=== PATIENT | male | born 1935 | race Caucasian/White ===

== ENCOUNTER → 2016-09-29 | Outpatient (CLI) | payer MEDICARE, OTHER ==
[~2016-09-29] MED LIST: ALIS300T; ASCO250T13 PO; ATEN50TA PO; CLOP75TA28 PO; CYANOCOBALAMIN (B-12) 1000 MCG/1 ML VIAL IM ONE; CYANOCOBALAMIN (B-12) 1000 MCG/1 ML VIAL ONE; FLUT250M2 IN; GABA300C8 PO; GLYB5TAB8 PO; NISO17TA
[2016-09-29 09:50] VITALS: BP 180/70
[2016-09-29 10:35] VITALS: BP 156/64
[2016-09-29 12:29] LABS: Basophils # (auto) 0 uL; Basophils % (auto) 0.3 % (0.0-2.0); Eosinophils # (auto) 0.1 uL; Hemoglobin 15.6 g/dL (13.5-17.5); Lymphocytes # (auto) 0.4 uL; Lymphocytes % (auto) 6.2 % (10.0-50.0); Mean Corpuscular Hemoglobin 32.2 pg (28.0-32.0); Mean Corpuscular Hgb Conc. 31.9 g/dL (32.0-36.0); Mean Corpuscular Volume 100.7 fL (80.0-100.0); Monocytes # (auto) 0.4 uL; Monocytes % (auto) 5.7 % (0.0-12.0); Neutrophils # (auto) 6.2 uL; Neutrophils % (auto) 86.8 % (37.0-80.0); Platelet Count (auto) 202 10^3/uL (140-450); Red Cell Distribution Width 13.3 % (11.6-16.0); White Blood Cell 7.1 10^3/uL (4.4-10.8)
[2016-09-29 15:25] LABS: Calcium 8.5 mg/dL (8.5-10.1); Magnesium 2.8 mg/dL (1.6-2.6); Potassium 4.5 mmol/L (3.5-5.1)
== END | disposition home or self-care (01) ==
LOC: CHF HDHVI 09:59
PROVIDERS: ATTEND Internal Medicine Cardiovascular Disease
DX: I10 Essential (primary) hypertension (principal); E83.40 Disorders of magnesium metabolism, unspecified; D64.9 Anemia, unspecified
CPT/HCPCS: 36415; 80048; 82962; 83735; 85025; 96372; G0463

== ENCOUNTER → 2017-01-24 | Outpatient (CLI) | payer MEDICARE, OTHER ==
[~2017-01-24] MED LIST changes: -CYANOCOBALAMIN (B-12) 1000 MCG/1 ML VIAL IM ONE; -CYANOCOBALAMIN (B-12) 1000 MCG/1 ML VIAL ONE; +GABA-497 PO; -GABA300C8 PO; -GLYB5TAB8 PO; +HYDR-4663 PO; +LINA5TAB PO; +VALA500T33 PO
== END | disposition home or self-care (01) ==
LOC: Rad HDHVI 08:58
PROVIDERS: ATTEND Internal Medicine Cardiovascular Disease
DX: I73.9 Peripheral vascular disease, unspecified (principal)
CPT/HCPCS: 93926

== ENCOUNTER → 2017-05-22 | Outpatient (CLI) | payer MEDICARE, OTHER ==
[~2017-05-22] MED LIST changes: -ALIS300T; -HYDR-4663 PO; +HYDR-4683 PO; +IOHEXOL 350 MG/ML 100ML IJ ONE; +SODIUM BICARBONATE 8.4 % INJ 50ML VIAL IV ONE; +SODIUM CHLORIDE 0.9% 500 ML IV SCH; +[UNRECOGNIZED DRUG - CODE]
[2017-05-22 11:50] VITALS: BP 140/62
[2017-05-22 14:30] VITALS: BP 119/90
== END | disposition home or self-care (01) ==
LOC: Rad HDHVI 11:26
PROVIDERS: ATTEND Internal Medicine Cardiovascular Disease
DX: J98.8 Other specified respiratory disorders (principal); I10 Essential (primary) hypertension; C34.90 Malignant neoplasm of unspecified part of unspecified bronchus or lung; J44.9 Chronic obstructive pulmonary disease, unspecified; Z90.2 Acquired absence of lung [part of]; Z90.49 Acquired absence of other specified parts of digestive tract
CPT/HCPCS: 71260; 82565; 96365; 96366; 96375; G0463; Q9967; 96374

== ENCOUNTER 2017-11-30 08:44 | Inpatient (IN) | payer MEDICARE, OTHER ==
[~2017-11-30] VITALS: Ht 185.4 cm; Wt 89.4 kg
[~2017-11-30 08:44] MED LIST changes: +ASCO500T11 PO; +FLUT250M2 INH; -GABA-497 PO; +GABA300C10 PO; +GLYB5TAB8 PO; -IOHEXOL 350 MG/ML 100ML IJ ONE; +NISO17TA3 PO; +NOR10T PO; -SODIUM BICARBONATE 8.4 % INJ 50ML VIAL IV ONE; -SODIUM CHLORIDE 0.9% 500 ML IV SCH; +VALA500T PO; +[UNRECOGNIZED DRUG - CODE]; -[UNRECOGNIZED DRUG - CODE]; +[UNRECOGNIZED DRUG - CODE] PO
[2017-11-30] MEDS ORDERED: ALBUTEROL SULF 2.5 MG/0.5ML(0.5%) NEB SOLN HHN ONE (09:00)
[2017-11-30] MEDS ORDERED: IPRATROPIUM BROM 0.5 MG/2.5ML INH SOL HHN ONE (09:00)
[2017-11-30] MEDS ORDERED: LEVOFLOXACIN 500MG 100 ML IV ONE (09:00)
[2017-11-30] MEDS ORDERED: methylPREDNISolone SOD SUCC 125 MG/2 ML VL IV ONE (09:00)
[2017-11-30 09:19] LABS: Basophils # (auto) 0.1 uL; Basophils % (auto) 0.9 % (0.0-2.0); Eosinophils # (auto) 0.1 uL; Eosinophils % (auto) 1.1 % (0.0-7.0); Hematocrit 48.1 % (41.0-53.0); Hemoglobin 16.3 g/dL (13.5-17.5); Lymphocytes # (auto) 0.9 uL; Lymphocytes % (auto) 10.3 % (10.0-50.0); Mean Corpuscular Hemoglobin 33.7 pg (28.0-32.0); Mean Corpuscular Hgb Conc. 33.9 g/dL (32.0-36.0); Mean Corpuscular Volume 99.3 fL (80.0-100.0); Monocytes # (auto) 0.6 uL; Monocytes % (auto) 6.4 % (0.0-12.0); Neutrophils # (auto) 7.3 uL; Neutrophils % (auto) 81.3 % (37.0-80.0); Platelet Count (auto) 171 10^3/uL (140-450); Red Blood Cells 4.84 10^6/uL (4.5-5.90); Red Cell Distribution Width 14.5 % (11.8-14.3)
[2017-11-30 09:49] LABS: Alanine Aminotransferase 14 U/L (16-61); Albumin 3.5 g/dL (3.4-5.0); Alkaline Phosphatase 94 U/L (45-117); Anion Gap 10 (5-15); Aspartate Aminotransferase 18 U/L (15-37); BUN/Creatinine Ratio 11.5; Bilirubin, Total 0.8 mg/dL (0.2-1.0); Blood Urea Nitrogen 30 mg/dL (7-18); Calcium 8.3 mg/dL (8.5-10.1); Carbon Dioxide 20 mmol/L (21-32); Chloride 110 mmol/L (98-107); GFR African American 30 mL/min; GFR Non-African American 25 mL/min; Glucose 168 mg/dL (74-106); Magnesium 2.6 mg/dL (1.6-2.6); Potassium 5.2 mmol/L (3.5-5.1); Sodium 140 mmol/L (136-145)
[2017-11-30 10:13] LABS: Lactic Acid w/Reflex 2.1 mmol/L (0.4-2.0)
[2017-11-30] MEDS ORDERED: AZITHROMYCIN 500MG/ 250ML 250 ML IV ONE (12:30)
[2017-11-30] MEDS ORDERED: cefTRIAXone 1GM/10ml IVPUSH 10 ML IV ONE (12:30)
[2017-11-30] MEDS ORDERED: NITROGLYCERIN 0.4 MG SL TAB SL PRN (12:45)
[2017-11-30] MEDS ORDERED: HYDROcodone-ACET 5/325MG TAB PO PRN (12:45)
[2017-11-30] MEDS ORDERED: ACETAMINOPHEN 325 MG TAB PO PRN (12:45)
[2017-11-30] MEDS ORDERED: ONDANSETRON HCL 4 MG/2 ML VIAL IV PRN (12:45)
[2017-11-30] MEDS ORDERED: DEXTROSE (50%) 50ML SYRG IV PRN (12:45)
[2017-11-30] MEDS ORDERED: TEMAZEPAM 15 MG CAP PO PRN (12:45)
[2017-11-30] MEDS ORDERED: DOCUSATE SOD 100 MG CAP PO PRN (12:45)
[2017-11-30] MEDS ORDERED: SODIUM POLYSTYRENE SULF 15GM/60ML SUSP PO ONE (12:45)
[2017-11-30] MEDS: SODIUM CHLOR 0.9% PF (SALINE LOCK) 10ML VIAL/SYR IV SCH ×2 (13:04→22:19)
[2017-11-30] MEDS: MULTIPLE VITAMIN TAB PO SCH (13:34)
[2017-11-30] MEDS: ACCU-CHEK COMFORT CURVE STRIP VI SCH ×2 (17:09→22:21)
[2017-11-30] MEDS: InsuLIN REG 1unit/0.01ml Soln (100units/ml) SC SCH ×2 (17:09→22:21)
[2017-11-30] MEDS: BUDESONIDE (INHALATION) 0.5 MG/2 ML NEB NEB SCH (18:21)
[2017-11-30] MEDS: IPRATROPIUM BROM 0.5 MG/2.5ML INH SOL NEB SCH (18:21)
[2017-11-30] MEDS: ALBUTEROL SULF 2.5 MG/0.5ML(0.5%) NEB SOLN NEB SCH (18:21)
[2017-11-30 19:05] LABS: Urine WBC None Seen /hpf (0 - 3)
[2017-11-30 19:55] LABS: Urine Bacteria NONE SEEN /hpf (None Seen); Urine Blood Negative /uL (Negative); Urine Specific Gravity 1.019 (1.001-1.035)
[2017-11-30 21:05] VITALS: BP 161/71
[2017-11-30 22:00] VITALS: BP 161/71
[2017-11-30] MEDS: VALACYCLOVIR 500 MG TABLET PO SCH (22:00)
[2017-11-30] MEDS ORDERED: ADVAIR 250/50 IN SCH (22:00)
[2017-11-30] MEDS: FAMOTIDINE 20 MG TAB PO SCH (22:21)
[2017-11-30] MEDS: GABAPENTIN 300 MG CAP PO SCH (22:21)
[2017-12-01] MEDS: IPRATROPIUM BROM 0.5 MG/2.5ML INH SOL NEB SCH ×4 (00:08→19:43)
[2017-12-01] MEDS: ALBUTEROL SULF 2.5 MG/0.5ML(0.5%) NEB SOLN NEB SCH ×4 (00:08→19:43)
[2017-12-01 05:00] VITALS: BP 123/79
[2017-12-01] MEDS: SODIUM CHLOR 0.9% PF (SALINE LOCK) 10ML VIAL/SYR IV SCH ×3 (05:36→22:47)
[2017-12-01] MEDS: InsuLIN REG 1unit/0.01ml Soln (100units/ml) SC SCH ×4 (06:26→22:00)
[2017-12-01] MEDS: ACCU-CHEK COMFORT CURVE STRIP VI SCH ×4 (06:26→22:00)
[2017-12-01 06:32] LABS: Basophils # (auto) 0 uL; Basophils % (auto) 0.1 % (0.0-2.0); Eosinophils # (auto) 0 uL; Hematocrit 44.7 % (41.0-53.0); Lymphocytes # (auto) 0.4 uL; Lymphocytes % (auto) 3.8 % (10.0-50.0); Mean Corpuscular Hemoglobin 33.4 pg (28.0-32.0); Mean Corpuscular Hgb Conc. 33.5 g/dL (32.0-36.0); Mean Corpuscular Volume 99.5 fL (80.0-100.0); Monocytes # (auto) 0.5 uL; Monocytes % (auto) 4.4 % (0.0-12.0); Neutrophils % (auto) 91.7 % (37.0-80.0); Platelet Count (auto) 160 10^3/uL (140-450); Red Blood Cells 4.49 10^6/uL (4.5-5.90); Red Cell Distribution Width 14.5 % (11.8-14.3); White Blood Cell 10.9 10^3/uL (4.4-10.8)
[2017-12-01 06:44] LABS: BUN/Creatinine Ratio 14.7; Calcium 8.2 mg/dL (8.5-10.1); Potassium 4.3 mmol/L (3.5-5.1)
[2017-12-01 06:47] LABS: Bilirubin, Total 0.5 mg/dL (0.2-1.0); Total Protein 5.9 g/dL (6.4-8.2)
[2017-12-01] MEDS: BUDESONIDE (INHALATION) 0.5 MG/2 ML NEB NEB SCH ×2 (07:07→19:44)
[2017-12-01 07:53] VITALS: BP 145/58
[2017-12-01] MEDS: VALACYCLOVIR 500 MG TABLET PO SCH ×2 (10:00→22:00)
[2017-12-01] MEDS: SULAR PO SCH (10:00)
[2017-12-01] MEDS: TRADJENTA 5MG PO SCH (10:00)
[2017-12-01] MEDS ORDERED: AZITHROMYCIN 500MG/ 250ML 200 ML IV SCH (10:00)
[2017-12-01] MEDS: cefTRIAXone 1GM/10ml IVPUSH 10 ML IV SCH (10:39)
[2017-12-01] MEDS: GABAPENTIN 300 MG CAP PO SCH ×2 (10:46→22:48)
[2017-12-01] MEDS: MULTIPLE VITAMIN TAB PO SCH (10:46)
[2017-12-01] MEDS: ISOSORBIDE MONONITRATE 20 MG TAB PO SCH (10:46)
[2017-12-01] MEDS: ASCORBIC ACID 500 MG TAB PO SCH (10:47)
[2017-12-01] MEDS: METOPROLOL SUCCINATE XL 50 MG TAB PO SCH (10:47)
[2017-12-01 11:37] VITALS: BP 158/80
[2017-12-01 17:00] VITALS: BP 141/87
[2017-12-01 22:28] VITALS: BP 140/69
[2017-12-01] MEDS: FAMOTIDINE 20 MG TAB PO SCH (22:48)
[2017-12-01] MEDS: HYDROcodone-ACET 10/325MG TAB PO PRN (22:49)
[2017-12-02] MEDS: IPRATROPIUM BROM 0.5 MG/2.5ML INH SOL NEB SCH ×4 (01:01→19:23)
[2017-12-02] MEDS: ALBUTEROL SULF 2.5 MG/0.5ML(0.5%) NEB SOLN NEB SCH ×4 (01:01→19:23)
[2017-12-02 05:12] VITALS: BP 153/84
[2017-12-02] MEDS: HYDROcodone-ACET 10/325MG TAB PO PRN ×2 (05:25→22:07)
[2017-12-02] MEDS: BUDESONIDE (INHALATION) 0.5 MG/2 ML NEB NEB SCH ×2 (06:41→19:23)
[2017-12-02] MEDS: InsuLIN REG 1unit/0.01ml Soln (100units/ml) SC SCH ×4 (07:00→22:06)
[2017-12-02] MEDS: SODIUM CHLOR 0.9% PF (SALINE LOCK) 10ML VIAL/SYR IV SCH ×3 (07:23→22:06)
[2017-12-02] MEDS: ACCU-CHEK COMFORT CURVE STRIP VI SCH ×4 (07:23→22:07)
[2017-12-02 07:34] VITALS: BP 149/75
[2017-12-02] MEDS: SULAR PO SCH (10:00)
[2017-12-02] MEDS: VALACYCLOVIR 500 MG TABLET PO SCH ×3 (10:00→22:06)
[2017-12-02] MEDS: TRADJENTA 5MG PO SCH (10:00)
[2017-12-02] MEDS: cefTRIAXone 1GM/10ml IVPUSH 10 ML IV SCH (10:23)
[2017-12-02] MEDS: AZITHROMYCIN 500MG/ 250ML 250 ML IV SCH (10:25)
[2017-12-02] MEDS: FUROSEMIDE 20 MG/2 ML VIAL IV SCH (10:25)
[2017-12-02] MEDS: ISOSORBIDE MONONITRATE 20 MG TAB PO SCH (10:26)
[2017-12-02] MEDS: METOPROLOL SUCCINATE XL 50 MG TAB PO SCH (10:27)
[2017-12-02] MEDS: ASCORBIC ACID 500 MG TAB PO SCH (10:27)
[2017-12-02] MEDS: GABAPENTIN 300 MG CAP PO SCH ×2 (10:27→22:06)
[2017-12-02] MEDS: MULTIPLE VITAMIN TAB PO SCH (10:27)
[2017-12-02 13:00] VITALS: BP 146/68
[2017-12-02 17:02] VITALS: BP 139/75
[2017-12-02] MEDS: FAMOTIDINE 20 MG TAB PO SCH (22:06)
[2017-12-02 22:25] VITALS: BP 139/66
[2017-12-03] MEDS: IPRATROPIUM BROM 0.5 MG/2.5ML INH SOL NEB SCH ×4 (00:27→19:35)
[2017-12-03] MEDS: ALBUTEROL SULF 2.5 MG/0.5ML(0.5%) NEB SOLN NEB SCH ×3 (00:27→12:01)
[2017-12-03 05:23] VITALS: BP 138/65
[2017-12-03] MEDS: SODIUM CHLOR 0.9% PF (SALINE LOCK) 10ML VIAL/SYR IV SCH ×3 (06:12→22:07)
[2017-12-03] MEDS: InsuLIN REG 1unit/0.01ml Soln (100units/ml) SC SCH ×4 (06:40→22:08)
[2017-12-03] MEDS: ACCU-CHEK COMFORT CURVE STRIP VI SCH ×4 (06:41→22:08)
[2017-12-03] MEDS: BUDESONIDE (INHALATION) 0.5 MG/2 ML NEB NEB SCH ×2 (07:24→19:35)
[2017-12-03 09:00] VITALS: BP 143/89
[2017-12-03] MEDS: cefTRIAXone 1GM/10ml IVPUSH 10 ML IV SCH (09:56)
[2017-12-03] MEDS: AZITHROMYCIN 500MG/ 250ML 250 ML IV SCH (09:56)
[2017-12-03] MEDS: GABAPENTIN 300 MG CAP PO SCH ×2 (09:57→22:07)
[2017-12-03] MEDS: FUROSEMIDE 20 MG/2 ML VIAL IV SCH (09:57)
[2017-12-03] MEDS: MULTIPLE VITAMIN TAB PO SCH (09:57)
[2017-12-03] MEDS: ASCORBIC ACID 500 MG TAB PO SCH (09:57)
[2017-12-03] MEDS: METOPROLOL SUCCINATE XL 50 MG TAB PO SCH (09:58)
[2017-12-03] MEDS: SULAR PO SCH (09:59)
[2017-12-03] MEDS: TRADJENTA 5MG PO SCH (09:59)
[2017-12-03] MEDS: VALACYCLOVIR 500 MG TABLET PO SCH ×2 (09:59→22:00)
[2017-12-03] MEDS: ISOSORBIDE MONONITRATE 20 MG TAB PO SCH (10:16)
[2017-12-03 12:38] VITALS: BP 115/68
[2017-12-03 14:37] VITALS: BP 115/68
[2017-12-03 14:54] LABS: BUN/Creatinine Ratio 14.5; Calcium 8.2 mg/dL (8.5-10.1); Potassium 4.1 mmol/L (3.5-5.1)
[2017-12-03 17:00] VITALS: BP 138/71
[2017-12-03] MEDS ORDERED: DIGOXIN (250MCG/ML) 2 ML AMPULE IV STA ×2 (18:32→19:53)
[2017-12-03] MEDS: FAMOTIDINE 20 MG TAB PO SCH (22:08)
[2017-12-03 22:18] VITALS: BP 154/91
[2017-12-04] MEDS: IPRATROPIUM BROM 0.5 MG/2.5ML INH SOL NEB SCH ×4 (00:56→19:21)
[2017-12-04] MEDS: BUDESONIDE (INHALATION) 0.5 MG/2 ML NEB NEB SCH ×2 (06:27→19:21)
[2017-12-04] MEDS: InsuLIN REG 1unit/0.01ml Soln (100units/ml) SC SCH ×4 (06:30→22:00)
[2017-12-04] MEDS: SODIUM CHLOR 0.9% PF (SALINE LOCK) 10ML VIAL/SYR IV SCH ×3 (06:30→21:37)
[2017-12-04] MEDS: ACCU-CHEK COMFORT CURVE STRIP VI SCH ×4 (06:30→22:15)
[2017-12-04 07:28] LABS: BUN/Creatinine Ratio 16.7; Bilirubin, Total 0.8 mg/dL (0.2-1.0); Calcium 8.7 mg/dL (8.5-10.1); Total Protein 6.4 g/dL (6.4-8.2)
[2017-12-04 07:30] LABS: Basophils # (auto) 0 uL; Basophils % (auto) 0.6 % (0.0-2.0); Eosinophils # (auto) 0.1 uL; Hematocrit 48.1 % (41.0-53.0); Hemoglobin 16.3 g/dL (13.5-17.5); Lymphocytes # (auto) 0.7 uL; Lymphocytes % (auto) 10.1 % (10.0-50.0); Mean Corpuscular Hemoglobin 33.3 pg (28.0-32.0); Monocytes # (auto) 0.6 uL; Neutrophils # (auto) 5.4 uL; Neutrophils % (auto) 78.3 % (37.0-80.0); Nucleated Red Blood Cells % 0.1 %; Platelet Count (auto) 153 10^3/uL (140-450); Red Blood Cells 4.91 10^6/uL (4.5-5.90); Red Cell Distribution Width 14.6 % (11.8-14.3); White Blood Cell 6.9 10^3/uL (4.4-10.8)
[2017-12-04 08:00] VITALS: BP 164/68
[2017-12-04 09:10] VITALS: BP 164/68
[2017-12-04] MEDS: FUROSEMIDE 20 MG/2 ML VIAL IV SCH (09:17)
[2017-12-04] MEDS: cefTRIAXone 1GM/10ml IVPUSH 10 ML IV SCH (09:17)
[2017-12-04] MEDS: ISOSORBIDE MONONITRATE 20 MG TAB PO SCH (09:18)
[2017-12-04] MEDS: GABAPENTIN 300 MG CAP PO SCH ×2 (09:20→22:16)
[2017-12-04] MEDS: MULTIPLE VITAMIN TAB PO SCH (09:21)
[2017-12-04] MEDS: METOPROLOL SUCCINATE XL 50 MG TAB PO SCH (09:22)
[2017-12-04] MEDS: ASCORBIC ACID 500 MG TAB PO SCH (09:22)
[2017-12-04] MEDS: SULAR PO SCH (09:29)
[2017-12-04] MEDS: AZITHROMYCIN 500MG/ 250ML 250 ML IV SCH (09:29)
[2017-12-04] MEDS: VALACYCLOVIR 500 MG TABLET PO SCH ×2 (09:29→21:38)
[2017-12-04] MEDS: TRADJENTA 5MG PO SCH (09:29)
[2017-12-04 13:08] VITALS: BP 127/73
[2017-12-04 16:50] VITALS: BP 128/59
[2017-12-04] MEDS: FAMOTIDINE 20 MG TAB PO SCH (21:36)
[2017-12-04 22:00] VITALS: BP 148/72
[2017-12-05] MEDS: IPRATROPIUM BROM 0.5 MG/2.5ML INH SOL NEB SCH ×4 (00:54→19:46)
[2017-12-05 04:48] VITALS: BP 150/75
[2017-12-05] MEDS: BUDESONIDE (INHALATION) 0.5 MG/2 ML NEB NEB SCH ×2 (06:09→19:46)
[2017-12-05 06:21] LABS: BUN/Creatinine Ratio 16.2; Calcium 8.8 mg/dL (8.5-10.1); Potassium 4.2 mmol/L (3.5-5.1)
[2017-12-05] MEDS: SODIUM CHLOR 0.9% PF (SALINE LOCK) 10ML VIAL/SYR IV SCH ×3 (06:22→22:53)
[2017-12-05] MEDS: ACCU-CHEK COMFORT CURVE STRIP VI SCH ×4 (06:28→22:52)
[2017-12-05] MEDS: InsuLIN REG 1unit/0.01ml Soln (100units/ml) SC SCH ×4 (06:29→22:51)
[2017-12-05 09:00] VITALS: BP 141/61
[2017-12-05] MEDS: cefTRIAXone 1GM/10ml IVPUSH 10 ML IV SCH (09:09)
[2017-12-05] MEDS: AZITHROMYCIN 500MG/ 250ML 250 ML IV SCH (09:10)
[2017-12-05] MEDS: ASCORBIC ACID 500 MG TAB PO SCH (09:10)
[2017-12-05] MEDS: MULTIPLE VITAMIN TAB PO SCH (09:10)
[2017-12-05] MEDS: FUROSEMIDE 20 MG/2 ML VIAL IV SCH (09:10)
[2017-12-05] MEDS: ISOSORBIDE MONONITRATE 20 MG TAB PO SCH (09:10)
[2017-12-05] MEDS: GABAPENTIN 300 MG CAP PO SCH ×2 (09:11→22:50)
[2017-12-05] MEDS: METOPROLOL SUCCINATE XL 50 MG TAB PO SCH (09:11)
[2017-12-05] MEDS: VALACYCLOVIR 500 MG TABLET PO SCH ×2 (09:23→22:53)
[2017-12-05] MEDS: TRADJENTA 5MG PO SCH (09:23)
[2017-12-05] MEDS: SULAR PO SCH (09:24)
[2017-12-05 12:13] VITALS: BP 113/66
[2017-12-05 17:07] VITALS: BP 137/81
[2017-12-05 22:00] VITALS: BP 105/60
[2017-12-05] MEDS: FAMOTIDINE 20 MG TAB PO SCH (22:50)
[2017-12-06] VITALS (7 sets, daily range): BP systolic 99–161; BP diastolic 42–87
[2017-12-06] MEDS: IPRATROPIUM BROM 0.5 MG/2.5ML INH SOL NEB SCH ×4 (00:51→19:20)
[2017-12-06] MEDS: ACCU-CHEK COMFORT CURVE STRIP VI SCH ×4 (06:08→22:06)
[2017-12-06] MEDS: SODIUM CHLOR 0.9% PF (SALINE LOCK) 10ML VIAL/SYR IV SCH ×3 (06:09→21:58)
[2017-12-06] MEDS: InsuLIN REG 1unit/0.01ml Soln (100units/ml) SC SCH ×4 (06:39→22:14)
[2017-12-06 06:58] LABS: BUN/Creatinine Ratio 17.8; Calcium 8.6 mg/dL (8.5-10.1); Potassium 3.8 mmol/L (3.5-5.1)
[2017-12-06] MEDS: BUDESONIDE (INHALATION) 0.5 MG/2 ML NEB NEB SCH ×2 (07:04→19:20)
[2017-12-06] MEDS: HYDROcodone-ACET 10/325MG TAB PO PRN (08:40)
[2017-12-06] MEDS: FUROSEMIDE 20 MG/2 ML VIAL IV SCH (09:24)
[2017-12-06] MEDS: cefTRIAXone 1GM/10ml IVPUSH 10 ML IV SCH (09:24)
[2017-12-06] MEDS: GABAPENTIN 300 MG CAP PO SCH ×2 (09:25→21:58)
[2017-12-06] MEDS: ISOSORBIDE MONONITRATE 20 MG TAB PO SCH (09:25)
[2017-12-06] MEDS: ASCORBIC ACID 500 MG TAB PO SCH (09:26)
[2017-12-06] MEDS: MULTIPLE VITAMIN TAB PO SCH (09:26)
[2017-12-06] MEDS: METOPROLOL SUCCINATE XL 50 MG TAB PO SCH (09:26)
[2017-12-06] MEDS: VALACYCLOVIR 500 MG TABLET PO SCH ×2 (09:28→22:00)
[2017-12-06] MEDS: TRADJENTA 5MG PO SCH (09:29)
[2017-12-06] MEDS: SULAR PO SCH (09:29)
[2017-12-06] MEDS: AZITHROMYCIN 250 MG TAB PO SCH (09:46)
[2017-12-06] MEDS: FAMOTIDINE 20 MG TAB PO SCH (21:58)
[2017-12-07] MEDS: IPRATROPIUM BROM 0.5 MG/2.5ML INH SOL NEB SCH ×3 (00:20→12:08)
[2017-12-07 05:00] VITALS: BP 135/58
[2017-12-07] MEDS: ACCU-CHEK COMFORT CURVE STRIP VI SCH ×2 (06:14→11:57)
[2017-12-07] MEDS: SODIUM CHLOR 0.9% PF (SALINE LOCK) 10ML VIAL/SYR IV SCH (06:14)
[2017-12-07] MEDS: InsuLIN REG 1unit/0.01ml Soln (100units/ml) SC SCH ×2 (06:15→11:57)
[2017-12-07] MEDS: BUDESONIDE (INHALATION) 0.5 MG/2 ML NEB NEB SCH (06:33)
[2017-12-07 09:00] VITALS: BP 132/61
[2017-12-07] MEDS: cefTRIAXone 1GM/10ml IVPUSH 10 ML IV SCH (10:35)
[2017-12-07] MEDS: FUROSEMIDE 20 MG/2 ML VIAL IV SCH (10:35)
[2017-12-07] MEDS: ISOSORBIDE MONONITRATE 20 MG TAB PO SCH (10:36)
[2017-12-07] MEDS: TRADJENTA 5MG PO SCH (10:36)
[2017-12-07] MEDS: MULTIPLE VITAMIN TAB PO SCH (10:36)
[2017-12-07] MEDS: VALACYCLOVIR 500 MG TABLET PO SCH (10:36)
[2017-12-07] MEDS: SULAR PO SCH (10:36)
[2017-12-07] MEDS: METOPROLOL SUCCINATE XL 50 MG TAB PO SCH (10:37)
[2017-12-07] MEDS: AZITHROMYCIN 250 MG TAB PO SCH (10:37)
[2017-12-07] MEDS: ASCORBIC ACID 500 MG TAB PO SCH (10:37)
[2017-12-07] MEDS: GABAPENTIN 300 MG CAP PO SCH (11:57)
[2017-12-07 13:00] VITALS: BP 101/67
== END 2017-12-07 15:38 | DRG 871 ==
LOC: ER 08:44 → TELE 08:45 → MERGE 08:45 → TELE-WESTW 21:05
PROVIDERS: ADMIT Internal Medicine; ATTEND Internal Medicine Cardiovascular Disease
PROC: 5A09357 Assistance with Respiratory Ventilation, Less than 24 Consecutive Hours, Continuous Positive Airway Pressure (ICD-10-PCS; principal; 2017-11-30)
DX: A41.9 Sepsis, unspecified organism (principal); J18.9 Pneumonia, unspecified organism; J96.20 Acute and chronic respiratory failure, unspecified whether with hypoxia or hypercapnia; J44.0 Chronic obstructive pulmonary disease with (acute) lower respiratory infection; I13.0 Hypertensive heart and chronic kidney disease with heart failure and stage 1 through stage 4 chronic kidney disease, or unspecified chronic kidney disease; N18.4 Chronic kidney disease, stage 4 (severe); N17.9 Acute kidney failure, unspecified; E11.21 Type 2 diabetes mellitus with diabetic nephropathy; J45.901 Unspecified asthma with (acute) exacerbation; E83.52 Hypercalcemia; E11.42 Type 2 diabetes mellitus with diabetic polyneuropathy; I50.32 Chronic diastolic (congestive) heart failure; E87.5 Hyperkalemia; J44.1 Chronic obstructive pulmonary disease with (acute) exacerbation; E11.40 Type 2 diabetes mellitus with diabetic neuropathy, unspecified; E78.5 Hyperlipidemia, unspecified; E11.22 Type 2 diabetes mellitus with diabetic chronic kidney disease; I48.91 Unspecified atrial fibrillation; I70.0 Atherosclerosis of aorta; R04.0 Epistaxis; Z80.52 Family history of malignant neoplasm of bladder; Z88.6 Allergy status to analgesic agent; Z91.012 Allergy to eggs; Z87.891 Personal history of nicotine dependence; Z90.2 Acquired absence of lung [part of]; Z99.81 Dependence on supplemental oxygen
CPT/HCPCS: 36415; 36600; 70450; 71045; 71250; 78582; 80048; 80053; 81001; 82805; 82962; 83036; 83605; 83735; 83880; 84443; 84484; 85025; 87040; 87086; 93005; 93306; 93970; 94640; 94644; 94761; 96365; 96367; 96375; 97163; J1815; J1956

== ENCOUNTER → 2017-12-11 | Outpatient (CLI) | payer MEDICARE, OTHER ==
[~2017-12-11] VITALS: Ht 1 cm; Wt 0.5 kg
[~2017-12-11] MED LIST changes: +CYANOCOBALAMIN (B-12) 1000 MCG/1 ML VIAL IM ONE; +CYANOCOBALAMIN (B-12) 1000 MCG/1 ML VIAL ONE
[2017-12-11 14:20] VITALS: BP 162/66
[2017-12-11 15:00] VITALS: BP 134/60
[2017-12-11 16:10] LABS: Potassium 4.3 mmol/L (3.5-5.1)
[2017-12-11 16:18] LABS: Basophils # (auto) 0.1 uL; Basophils % (auto) 0.9 % (0.0-2.0); Eosinophils # (auto) 0.2 uL; Eosinophils % (auto) 2.3 % (0.0-7.0); Hematocrit 45.1 % (41.0-53.0); Hemoglobin 15.4 g/dL (13.5-17.5); Lymphocytes % (auto) 14.4 % (10.0-50.0); Mean Corpuscular Hemoglobin 33.5 pg (28.0-32.0); Mean Corpuscular Hgb Conc. 34.2 g/dL (32.0-36.0); Mean Corpuscular Volume 97.8 fL (80.0-100.0); Monocytes # (auto) 0.7 uL; Neutrophils # (auto) 5.3 uL; Neutrophils % (auto) 73.4 % (37.0-80.0); Nucleated Red Blood Cells % 0.1 %; Platelet Count (auto) 184 10^3/uL (140-450); Red Blood Cells 4.61 10^6/uL (4.5-5.90); Red Cell Distribution Width 13.8 % (11.8-14.3); White Blood Cell 7.3 10^3/uL (4.4-10.8)
== END | disposition home or self-care (01) ==
LOC: CHF HDHVI 14:21
PROVIDERS: ATTEND Internal Medicine Cardiovascular Disease
DX: J90 Pleural effusion, not elsewhere classified (principal); I70.0 Atherosclerosis of aorta; I13.0 Hypertensive heart and chronic kidney disease with heart failure and stage 1 through stage 4 chronic kidney disease, or unspecified chronic kidney disease; E11.22 Type 2 diabetes mellitus with diabetic chronic kidney disease; N18.4 Chronic kidney disease, stage 4 (severe); I50.9 Heart failure, unspecified; R53.81 Other malaise; D64.9 Anemia, unspecified; E78.5 Hyperlipidemia, unspecified
CPT/HCPCS: 36415; 71046; 82565; 82962; 83880; 84132; 84520; 85025; 96372; G0463; J3420

== ENCOUNTER 2017-12-17 09:55 | Inpatient (IN) | payer MEDICARE, OTHER ==
[~2017-12-17] VITALS: Ht 185.4 cm; Wt 87.5 kg
[~2017-12-17 09:55] MED LIST changes: -CYANOCOBALAMIN (B-12) 1000 MCG/1 ML VIAL IM ONE; -CYANOCOBALAMIN (B-12) 1000 MCG/1 ML VIAL ONE
[2017-12-17 10:28] LABS: Basophils # (auto) 0.1 uL; Basophils % (auto) 0.8 % (0.0-2.0); Eosinophils # (auto) 0.1 uL; Eosinophils % (auto) 0.6 % (0.0-7.0); Hematocrit 46.5 % (41.0-53.0); Hemoglobin 15.4 g/dL (13.5-17.5); Lymphocytes # (auto) 0.8 uL; Lymphocytes % (auto) 8.1 % (10.0-50.0); Mean Corpuscular Hemoglobin 32.4 pg (28.0-32.0); Mean Corpuscular Hgb Conc. 33.1 g/dL (32.0-36.0); Mean Corpuscular Volume 97.9 fL (80.0-100.0); Monocytes # (auto) 0.6 uL; Monocytes % (auto) 5.7 % (0.0-12.0); Neutrophils # (auto) 8.6 uL; Neutrophils % (auto) 84.8 % (37.0-80.0); Platelet Count (auto) 183 10^3/uL (140-450); Red Blood Cells 4.74 10^6/uL (4.5-5.90); Red Cell Distribution Width 14.4 % (11.8-14.3); White Blood Cell 10.1 10^3/uL (4.4-10.8)
[2017-12-17 10:43] LABS: Albumin 3.3 g/dL (3.4-5.0); BUN/Creatinine Ratio 11.6; Bilirubin, Total 0.6 mg/dL (0.2-1.0); Calcium 8.3 mg/dL (8.5-10.1); Magnesium 2.6 mg/dL (1.6-2.6); Total Protein 6.3 g/dL (6.4-8.2)
[2017-12-17] MEDS ORDERED: SODIUM CHLORIDE 0.9% 1,000 ML IV ONE (13:33)
[2017-12-17] MEDS ORDERED: LACTULOSE 20Gm/30ML SOLN PO PRN (14:00)
[2017-12-17] MEDS ORDERED: TEMAZEPAM 15 MG CAP PO PRN (14:00)
[2017-12-17] MEDS ORDERED: NITROGLYCERIN 0.4 MG SL TAB SL PRN (14:00)
[2017-12-17] MEDS ORDERED: DEXTROSE (50%) 50ML SYRG IV PRN (14:00)
[2017-12-17] MEDS ORDERED: HYDROcodone-ACET 5/325MG TAB PO PRN (14:00)
[2017-12-17] MEDS ORDERED: LORazepam 0.5 MG TAB PO PRN (14:00)
[2017-12-17] MEDS ORDERED: ACETAMINOPHEN 500 MG TAB PO PRN (14:00)
[2017-12-17] MEDS ORDERED: PROMETHAZINE HCL 25 MG/ML 1ML IV PRN (14:00)
[2017-12-17] MEDS ORDERED: ALBUTEROL SULF 2.5 MG/0.5ML(0.5%) NEB SOLN NEB PRN (14:00)
[2017-12-17] MEDS ORDERED: methylPREDNISolone SOD SUCC 40 MG/ML VL IV SCH (14:00)
[2017-12-17 14:13] LABS: INR 0.94 (0.9-1.15); Partial Thromboplastin Time 24.7 sec (22.64-33.71); Prothrombin Time 10.2 sec (9.37-12.3)
[2017-12-17 14:34] VITALS: BP 117/51
[2017-12-17] MEDS: DOXYCYCLINE 100MG/250ML 250 ML IV SCH (14:41)
[2017-12-17] MEDS ORDERED: ENOXAPARIN SOD 60 MG/0.6 ML SYRINGE SC ONE (16:15)
[2017-12-17] MEDS: ACCU-CHEK COMFORT CURVE STRIP VI SCH ×2 (17:45→22:35)
[2017-12-17] MEDS: InsuLIN REG 1unit/0.01ml Soln (100units/ml) SC SCH ×2 (17:48→22:35)
[2017-12-17] MEDS: ALBUTEROL SULF 2.5 MG/0.5ML(0.5%) NEB SOLN NEB SCH ×2 (18:16→23:57)
[2017-12-17] MEDS: IPRATROPIUM BROM 0.5 MG/2.5ML INH SOL NEB SCH ×2 (18:16→23:57)
[2017-12-17] MEDS: BUDESONIDE (INHALATION) 0.5 MG/2 ML NEB NEB SCH (18:16)
[2017-12-17 18:30] VITALS: BP 163/73
[2017-12-17] MEDS: glyBURIDE 5 MG TAB PO SCH (19:08)
[2017-12-17 19:50] VITALS: BP 154/98
[2017-12-17] MEDS: VALACYCLOVIR 500 MG TABLET PO SCH (22:00)
[2017-12-17] MEDS: GABAPENTIN 300 MG CAP PO SCH (22:35)
[2017-12-17] MEDS: CARVEDILOL 3.125 MG TAB PO SCH (22:54)
[2017-12-18] VITALS: BP 133/55
[2017-12-18] MEDS: DOXYCYCLINE 100MG/250ML 250 ML IV SCH ×2 (01:37→14:24)
[2017-12-18 04:00] VITALS: BP 154/77
[2017-12-18 05:25] LABS: Basophils # (auto) 0 uL; Basophils % (auto) 0.3 % (0.0-2.0); Eosinophils # (auto) 0 uL; Hematocrit 44.2 % (41.0-53.0); Hemoglobin 14.8 g/dL (13.5-17.5); Lymphocytes # (auto) 0.6 uL; Lymphocytes % (auto) 5.5 % (10.0-50.0); Mean Corpuscular Hemoglobin 32.9 pg (28.0-32.0); Mean Corpuscular Hgb Conc. 33.4 g/dL (32.0-36.0); Mean Corpuscular Volume 98.6 fL (80.0-100.0); Monocytes # (auto) 0.5 uL; Monocytes % (auto) 4.4 % (0.0-12.0); Neutrophils # (auto) 9.4 uL; Neutrophils % (auto) 89.8 % (37.0-80.0); Nucleated Red Blood Cells % 0.1 %; Platelet Count (auto) 168 10^3/uL (140-450); Red Blood Cells 4.48 10^6/uL (4.5-5.90); Red Cell Distribution Width 14.2 % (11.8-14.3); White Blood Cell 10.5 10^3/uL (4.4-10.8)
[2017-12-18 05:42] LABS: Albumin 2.9 g/dL (3.4-5.0); BUN/Creatinine Ratio 14.6; Potassium 4.3 mmol/L (3.5-5.1)
[2017-12-18 05:45] LABS: Bilirubin, Total 0.5 mg/dL (0.2-1.0); Total Protein 5.9 g/dL (6.4-8.2)
[2017-12-18] MEDS: IPRATROPIUM BROM 0.5 MG/2.5ML INH SOL NEB SCH ×4 (06:25→23:51)
[2017-12-18] MEDS: ALBUTEROL SULF 2.5 MG/0.5ML(0.5%) NEB SOLN NEB SCH ×4 (06:25→23:51)
[2017-12-18] MEDS: BUDESONIDE (INHALATION) 0.5 MG/2 ML NEB NEB SCH ×2 (06:25→19:02)
[2017-12-18] MEDS: ACCU-CHEK COMFORT CURVE STRIP VI SCH ×4 (06:42→21:22)
[2017-12-18] MEDS: InsuLIN REG 1unit/0.01ml Soln (100units/ml) SC SCH ×4 (06:42→21:22)
[2017-12-18 08:00] VITALS: BP 147/106
[2017-12-18] MEDS ORDERED: ENALAPRIL MALEATE 2.5 MG TAB PO SCH (10:00)
[2017-12-18] MEDS ORDERED: ASCORBIC ACID 500 MG TAB PO SCH (10:00)
[2017-12-18] MEDS: VALACYCLOVIR 500 MG TABLET PO SCH ×2 (10:00→21:27)
[2017-12-18] MEDS: LINAGLIPTIN BASE 5 MG PO SCH (10:00)
[2017-12-18] MEDS: [UNRECOGNIZED DRUG - OTHER] PO SCH (10:00)
[2017-12-18] MEDS: ASPirin 81 mg TAB PO SCH (10:00)
[2017-12-18] MEDS: POTASSIUM CHL 20 Meq TABLET PO SCH (10:20)
[2017-12-18] MEDS: GABAPENTIN 300 MG CAP PO SCH ×2 (10:21→21:21)
[2017-12-18] MEDS: CARVEDILOL 3.125 MG TAB PO SCH ×2 (10:23→21:22)
[2017-12-18] MEDS: FUROSEMIDE 40 MG/4 ML VIAL IV SCH (10:23)
[2017-12-18] MEDS: CLOPIDOGREL BISULFATE 75 MG TAB PO SCH (10:25)
[2017-12-18] MEDS: glyBURIDE 5 MG TAB PO SCH ×2 (10:25→17:59)
[2017-12-18] MEDS: PANTOPRAZOLE 40 MG TAB PO SCH (10:25)
[2017-12-18] MEDS: ASCORBIC ACID 500 MG TAB PO SCH (10:25)
[2017-12-18] MEDS: ENOXAPARIN SOD 30 MG/0.3 ML SYRINGE SC SCH (10:26)
[2017-12-18 11:54] VITALS: BP 121/71
[2017-12-18 15:48] VITALS: BP 121/46
[2017-12-18 19:50] VITALS: BP 130/54
[2017-12-19] VITALS: BP 152/65
[2017-12-19] MEDS: DOXYCYCLINE 100MG/250ML 250 ML IV SCH ×2 (01:34→13:30)
[2017-12-19 04:00] VITALS: BP 150/75
[2017-12-19] MEDS: ALBUTEROL SULF 2.5 MG/0.5ML(0.5%) NEB SOLN NEB SCH ×3 (05:41→18:31)
[2017-12-19] MEDS: BUDESONIDE (INHALATION) 0.5 MG/2 ML NEB NEB SCH ×2 (05:41→18:31)
[2017-12-19] MEDS: IPRATROPIUM BROM 0.5 MG/2.5ML INH SOL NEB SCH ×3 (05:41→18:31)
[2017-12-19] MEDS: ACCU-CHEK COMFORT CURVE STRIP VI SCH ×4 (06:17→22:20)
[2017-12-19] MEDS: InsuLIN REG 1unit/0.01ml Soln (100units/ml) SC SCH ×4 (06:17→22:20)
[2017-12-19 08:00] VITALS: BP 150/65
[2017-12-19] MEDS: glyBURIDE 5 MG TAB PO SCH ×2 (09:20→17:44)
[2017-12-19] MEDS: FUROSEMIDE 40 MG/4 ML VIAL IV SCH (09:21)
[2017-12-19] MEDS: CLOPIDOGREL BISULFATE 75 MG TAB PO SCH (09:22)
[2017-12-19] MEDS: PANTOPRAZOLE 40 MG TAB PO SCH (09:23)
[2017-12-19] MEDS: GABAPENTIN 300 MG CAP PO SCH ×2 (09:24→22:20)
[2017-12-19] MEDS: ENOXAPARIN SOD 30 MG/0.3 ML SYRINGE SC SCH (09:24)
[2017-12-19] MEDS: ASCORBIC ACID 500 MG TAB PO SCH (09:24)
[2017-12-19] MEDS: POTASSIUM CHL 20 Meq TABLET PO SCH (09:30)
[2017-12-19] MEDS: CARVEDILOL 3.125 MG TAB PO SCH ×2 (10:00→22:19)
[2017-12-19] MEDS: [UNRECOGNIZED DRUG - OTHER] PO SCH (10:00)
[2017-12-19] MEDS: VALACYCLOVIR 500 MG TABLET PO SCH ×2 (10:00→22:00)
[2017-12-19] MEDS: LINAGLIPTIN BASE 5 MG PO SCH (10:00)
[2017-12-19] MEDS: ASPirin 81 mg TAB PO SCH (10:00)
[2017-12-19 12:00] VITALS: BP 145/71
[2017-12-19 16:00] VITALS: BP 138/69
[2017-12-19 20:04] VITALS: BP 140/61
[2017-12-20] VITALS (8 sets, daily range): BP systolic 90–161; BP diastolic 57–78
[2017-12-20] MEDS: ALBUTEROL SULF 2.5 MG/0.5ML(0.5%) NEB SOLN NEB SCH ×4 (00:12→19:07)
[2017-12-20] MEDS: IPRATROPIUM BROM 0.5 MG/2.5ML INH SOL NEB SCH ×4 (00:12→19:06)
[2017-12-20] MEDS: DOXYCYCLINE 100MG/250ML 250 ML IV SCH ×2 (01:54→13:16)
[2017-12-20] MEDS: InsuLIN REG 1unit/0.01ml Soln (100units/ml) SC SCH ×4 (06:46→22:07)
[2017-12-20] MEDS: ACCU-CHEK COMFORT CURVE STRIP VI SCH ×4 (06:46→22:06)
[2017-12-20] MEDS: BUDESONIDE (INHALATION) 0.5 MG/2 ML NEB NEB SCH (08:00)
[2017-12-20] MEDS: VALACYCLOVIR 500 MG TABLET PO SCH ×2 (10:00→22:04)
[2017-12-20] MEDS: LINAGLIPTIN BASE 5 MG PO SCH (10:00)
[2017-12-20] MEDS: [UNRECOGNIZED DRUG - OTHER] PO SCH (10:00)
[2017-12-20] MEDS: glyBURIDE 5 MG TAB PO SCH ×2 (10:03→17:58)
[2017-12-20] MEDS: ASPirin 81 mg TAB PO SCH (10:04)
[2017-12-20] MEDS: FUROSEMIDE 40 MG/4 ML VIAL IV SCH (10:04)
[2017-12-20] MEDS: CARVEDILOL 3.125 MG TAB PO SCH ×2 (10:05→22:03)
[2017-12-20] MEDS: GABAPENTIN 300 MG CAP PO SCH ×2 (10:05→22:03)
[2017-12-20] MEDS: ENOXAPARIN SOD 30 MG/0.3 ML SYRINGE SC SCH (10:06)
[2017-12-20] MEDS: PANTOPRAZOLE 40 MG TAB PO SCH (10:06)
[2017-12-20] MEDS: CLOPIDOGREL BISULFATE 75 MG TAB PO SCH (10:06)
[2017-12-20] MEDS: POTASSIUM CHL 20 Meq TABLET PO SCH (10:06)
[2017-12-20] MEDS: ASCORBIC ACID 500 MG TAB PO SCH (10:06)
[2017-12-21] MEDS: BUDESONIDE (INHALATION) 0.5 MG/2 ML NEB NEB SCH ×3 (00:09→19:57)
[2017-12-21] MEDS: IPRATROPIUM BROM 0.5 MG/2.5ML INH SOL NEB SCH ×4 (00:09→19:57)
[2017-12-21] MEDS: ALBUTEROL SULF 2.5 MG/0.5ML(0.5%) NEB SOLN NEB SCH ×4 (00:09→19:57)
[2017-12-21] MEDS: DOXYCYCLINE 100MG/250ML 250 ML IV SCH ×2 (02:00→14:54)
[2017-12-21 03:51] VITALS: BP 132/72
[2017-12-21 05:44] LABS: Basophils # (auto) 0 uL; Basophils % (auto) 0.5 % (0.0-2.0); Eosinophils # (auto) 0.3 uL; Eosinophils % (auto) 3.4 % (0.0-7.0); Hematocrit 51.1 % (41.0-53.0); Hemoglobin 17.4 g/dL (13.5-17.5); Lymphocytes % (auto) 11.4 % (10.0-50.0); Mean Corpuscular Hemoglobin 33.5 pg (28.0-32.0); Mean Corpuscular Volume 98.4 fL (80.0-100.0); Monocytes # (auto) 0.7 uL; Monocytes % (auto) 8.6 % (0.0-12.0); Neutrophils # (auto) 6.3 uL; Neutrophils % (auto) 76.1 % (37.0-80.0); Nucleated Red Blood Cells % 0.1 %; Platelet Count (auto) 153 10^3/uL (140-450); Red Blood Cells 5.19 10^6/uL (4.5-5.90); Red Cell Distribution Width 14.4 % (11.8-14.3); White Blood Cell 8.3 10^3/uL (4.4-10.8)
[2017-12-21] MEDS: ACCU-CHEK COMFORT CURVE STRIP VI SCH ×4 (06:08→22:00)
[2017-12-21] MEDS: InsuLIN REG 1unit/0.01ml Soln (100units/ml) SC SCH ×4 (06:10→22:00)
[2017-12-21 06:16] LABS: Albumin 3.3 g/dL (3.4-5.0); BUN/Creatinine Ratio 19.4; Bilirubin, Total 0.7 mg/dL (0.2-1.0); Calcium 8.8 mg/dL (8.5-10.1); Potassium 4.4 mmol/L (3.5-5.1); Total Protein 6.6 g/dL (6.4-8.2)
[2017-12-21] MEDS: glyBURIDE 5 MG TAB PO SCH ×2 (08:48→17:45)
[2017-12-21] MEDS: [UNRECOGNIZED DRUG - OTHER] PO SCH (10:00)
[2017-12-21] MEDS: LINAGLIPTIN BASE 5 MG PO SCH (10:00)
[2017-12-21] MEDS: ENOXAPARIN SOD 30 MG/0.3 ML SYRINGE SC SCH (11:21)
[2017-12-21] MEDS: FUROSEMIDE 40 MG/4 ML VIAL IV SCH (11:22)
[2017-12-21] MEDS: ASCORBIC ACID 500 MG TAB PO SCH (11:22)
[2017-12-21] MEDS: GABAPENTIN 300 MG CAP PO SCH ×2 (11:22→23:31)
[2017-12-21] MEDS: PANTOPRAZOLE 40 MG TAB PO SCH (11:22)
[2017-12-21] MEDS: ASPirin 81 mg TAB PO SCH (11:22)
[2017-12-21] MEDS: POTASSIUM CHL 20 Meq TABLET PO SCH (11:22)
[2017-12-21] MEDS: CARVEDILOL 3.125 MG TAB PO SCH ×2 (11:23→22:00)
[2017-12-21] MEDS: VALACYCLOVIR 500 MG TABLET PO SCH ×2 (11:23→22:00)
[2017-12-21] MEDS: CLOPIDOGREL BISULFATE 75 MG TAB PO SCH (11:23)
[2017-12-21 12:00] VITALS: BP 129/65
[2017-12-21 17:00] VITALS: BP 134/71
[2017-12-21 22:00] VITALS: BP 108/56
[2017-12-22] MEDS: IPRATROPIUM BROM 0.5 MG/2.5ML INH SOL NEB SCH ×3 (01:07→13:43)
[2017-12-22] MEDS: ALBUTEROL SULF 2.5 MG/0.5ML(0.5%) NEB SOLN NEB SCH ×3 (01:07→13:43)
[2017-12-22] MEDS: DOXYCYCLINE 100MG/250ML 250 ML IV SCH ×2 (02:00→14:20)
[2017-12-22 05:00] VITALS: BP 159/68
[2017-12-22] MEDS: InsuLIN REG 1unit/0.01ml Soln (100units/ml) SC SCH ×2 (06:16→11:52)
[2017-12-22] MEDS: ACCU-CHEK COMFORT CURVE STRIP VI SCH ×2 (06:17→11:52)
[2017-12-22] MEDS: glyBURIDE 5 MG TAB PO SCH (08:53)
[2017-12-22 09:00] VITALS: BP 140/67
[2017-12-22] MEDS: BUDESONIDE (INHALATION) 0.5 MG/2 ML NEB NEB SCH (09:10)
[2017-12-22] MEDS: FUROSEMIDE 40 MG/4 ML VIAL IV SCH (09:17)
[2017-12-22] MEDS: PANTOPRAZOLE 40 MG TAB PO SCH (09:18)
[2017-12-22] MEDS: ENOXAPARIN SOD 30 MG/0.3 ML SYRINGE SC SCH (09:18)
[2017-12-22] MEDS: ASCORBIC ACID 500 MG TAB PO SCH (09:18)
[2017-12-22] MEDS: VALACYCLOVIR 500 MG TABLET PO SCH (09:18)
[2017-12-22] MEDS: CLOPIDOGREL BISULFATE 75 MG TAB PO SCH (09:18)
[2017-12-22] MEDS: POTASSIUM CHL 20 Meq TABLET PO SCH (09:18)
[2017-12-22] MEDS: GABAPENTIN 300 MG CAP PO SCH (09:18)
[2017-12-22] MEDS: CARVEDILOL 3.125 MG TAB PO SCH (09:18)
[2017-12-22] MEDS: ASPirin 81 mg TAB PO SCH (09:18)
[2017-12-22] MEDS ORDERED: predniSONE 20 MG TAB PO SCH (10:00)
[2017-12-22] MEDS: [UNRECOGNIZED DRUG - OTHER] PO SCH (10:00)
[2017-12-22] MEDS: LINAGLIPTIN BASE 5 MG PO SCH (10:00)
[2017-12-22 13:01] VITALS: BP 138/77
== END 2017-12-22 16:25 | disposition home or self-care (01) | DRG 682 ==
LOC: EDBD 09:55 → ER 09:55 → TELE 09:56 → DOU IN ICU 18:41 → TELE-WESTW 12-21 15:42
PROVIDERS: ADMIT Internal Medicine; ATTEND Internal Medicine Cardiovascular Disease
DX: N17.0 Acute kidney failure with tubular necrosis (principal); J96.21 Acute and chronic respiratory failure with hypoxia; E11.21 Type 2 diabetes mellitus with diabetic nephropathy; E44.1 Mild protein-calorie malnutrition; N19 Unspecified kidney failure; E11.42 Type 2 diabetes mellitus with diabetic polyneuropathy; I50.9 Heart failure, unspecified; J44.9 Chronic obstructive pulmonary disease, unspecified; E78.5 Hyperlipidemia, unspecified; J40 Bronchitis, not specified as acute or chronic; I11.0 Hypertensive heart disease with heart failure; I25.10 Atherosclerotic heart disease of native coronary artery without angina pectoris; I70.0 Atherosclerosis of aorta; Z68.25 Body mass index [BMI] 25.0-25.9, adult; Z80.52 Family history of malignant neoplasm of bladder; Z85.118 Personal history of other malignant neoplasm of bronchus and lung; Z95.5 Presence of coronary angioplasty implant and graft; Z99.81 Dependence on supplemental oxygen; Z90.49 Acquired absence of other specified parts of digestive tract; Z88.5 Allergy status to narcotic agent; Z91.012 Allergy to eggs; Z79.899 Other long term (current) drug therapy
CPT/HCPCS: 36415; 51702; 71045; 71046; 76604; 78582; 80053; 82550; 82962; 83036; 83735; 83880; 84443; 84484; 85025; 85379; 85610; 85730; 87081; 87804; 93005; 93970; 94640; 96361; 96372; 96374; G0463; J1815; J3490

== ENCOUNTER → 2017-12-27 | Outpatient (CLI) | payer MEDICARE, OTHER ==
[~2017-12-27] MED LIST changes: +CYANOCOBALAMIN (B-12) 1000 MCG/1 ML VIAL IM ONE; +CYANOCOBALAMIN (B-12) 1000 MCG/1 ML VIAL ONE
[2017-12-27 12:40] VITALS: BP 171/62
[2017-12-27 13:00] VITALS: BP 147/70
== END | disposition home or self-care (01) ==
LOC: CHF HDHVI 12:45
PROVIDERS: ATTEND Internal Medicine Cardiovascular Disease
DX: I13.0 Hypertensive heart and chronic kidney disease with heart failure and stage 1 through stage 4 chronic kidney disease, or unspecified chronic kidney disease (principal); E11.22 Type 2 diabetes mellitus with diabetic chronic kidney disease; E11.42 Type 2 diabetes mellitus with diabetic polyneuropathy; E11.21 Type 2 diabetes mellitus with diabetic nephropathy; N18.4 Chronic kidney disease, stage 4 (severe); I50.32 Chronic diastolic (congestive) heart failure; D64.9 Anemia, unspecified; J44.9 Chronic obstructive pulmonary disease, unspecified; R53.81 Other malaise; R53.83 Other fatigue; I25.10 Atherosclerotic heart disease of native coronary artery without angina pectoris; E78.5 Hyperlipidemia, unspecified; I48.91 Unspecified atrial fibrillation; Z79.899 Other long term (current) drug therapy; Z98.61 Coronary angioplasty status; Z85.118 Personal history of other malignant neoplasm of bronchus and lung; Z68.25 Body mass index [BMI] 25.0-25.9, adult; Z87.891 Personal history of nicotine dependence; Z87.01 Personal history of pneumonia (recurrent)
CPT/HCPCS: 82962; 96372; G0463; J3420

== ENCOUNTER 2017-12-29 08:12 | Emergency (ER) | payer MEDICARE, OTHER ==
[~2017-12-29] VITALS: Ht 185.4 cm; Wt 87.1 kg
[~2017-12-29 08:12] MED LIST changes: -FUROSEMIDE 40 MG/4 ML VIAL IV ONE; -FUROSEMIDE 40 MG/4 ML VIAL ONE; -POTASSIUM CHL 20 Meq TABLET PO ONE
[2017-12-29 08:24] VITALS: BP 173/73
[2017-12-29 08:55] LABS: Basophils # (auto) 0.1 uL; Basophils % (auto) 0.6 % (0.0-2.0); Eosinophils # (auto) 0.1 uL; Eosinophils % (auto) 1.3 % (0.0-7.0); Hematocrit 46.3 % (41.0-53.0); Hemoglobin 15.5 g/dL (13.5-17.5); Lymphocytes # (auto) 1.4 uL; Lymphocytes % (auto) 14.1 % (10.0-50.0); Mean Corpuscular Hemoglobin 32.9 pg (28.0-32.0); Mean Corpuscular Hgb Conc. 33.5 g/dL (32.0-36.0); Mean Corpuscular Volume 98.1 fL (80.0-100.0); Monocytes # (auto) 0.5 uL; Monocytes % (auto) 5.6 % (0.0-12.0); Neutrophils # (auto) 7.6 uL; Neutrophils % (auto) 78.4 % (37.0-80.0); Nucleated Red Blood Cells % 0.1 %; Platelet Count (auto) 172 10^3/uL (140-450); Red Blood Cells 4.72 10^6/uL (4.5-5.90); Red Cell Distribution Width 14.9 % (11.8-14.3); White Blood Cell 9.7 10^3/uL (4.4-10.8)
[2017-12-29 09:14] LABS: Albumin 3.2 g/dL (3.4-5.0); BUN/Creatinine Ratio 18.9; Calcium 8.3 mg/dL (8.5-10.1); Potassium 4.4 mmol/L (3.5-5.1)
[2017-12-29 09:18] LABS: Bilirubin, Total 0.6 mg/dL (0.2-1.0); Total Protein 6.4 g/dL (6.4-8.2)
== END 2017-12-29 10:23 | disposition home or self-care (01) ==
LOC: ER 08:15
DX: R07.89 Other chest pain (principal); J90 Pleural effusion, not elsewhere classified; J44.9 Chronic obstructive pulmonary disease, unspecified; E11.9 Type 2 diabetes mellitus without complications; I10 Essential (primary) hypertension; Z90.49 Acquired absence of other specified parts of digestive tract; Z90.89 Acquired absence of other organs; Z79.899 Other long term (current) drug therapy; Z91.012 Allergy to eggs; Z88.6 Allergy status to analgesic agent
CPT/HCPCS: 36415; 71046; 80053; 83880; 84484; 85025; 93005; 94761

== ENCOUNTER → 2017-12-29 | Outpatient (CLI) | payer MEDICARE, OTHER ==
[~2017-12-29] MED LIST changes: -CYANOCOBALAMIN (B-12) 1000 MCG/1 ML VIAL IM ONE; -CYANOCOBALAMIN (B-12) 1000 MCG/1 ML VIAL ONE; +FUROSEMIDE 40 MG/4 ML VIAL IV ONE; +FUROSEMIDE 40 MG/4 ML VIAL ONE; +POTASSIUM CHL 20 Meq TABLET PO ONE
[2017-12-29 11:00] VITALS: BP 170/80
[2017-12-29 12:00] VITALS: BP 166/75
== END | disposition home or self-care (01) ==
LOC: CHF HDHVI 10:44
PROVIDERS: ATTEND Internal Medicine Cardiovascular Disease
DX: I13.0 Hypertensive heart and chronic kidney disease with heart failure and stage 1 through stage 4 chronic kidney disease, or unspecified chronic kidney disease (principal); E11.22 Type 2 diabetes mellitus with diabetic chronic kidney disease; N18.4 Chronic kidney disease, stage 4 (severe); I50.32 Chronic diastolic (congestive) heart failure; J44.9 Chronic obstructive pulmonary disease, unspecified; E78.5 Hyperlipidemia, unspecified; I48.91 Unspecified atrial fibrillation; E11.21 Type 2 diabetes mellitus with diabetic nephropathy; E11.40 Type 2 diabetes mellitus with diabetic neuropathy, unspecified; I25.10 Atherosclerotic heart disease of native coronary artery without angina pectoris; Z79.899 Other long term (current) drug therapy; Z87.891 Personal history of nicotine dependence; Z90.49 Acquired absence of other specified parts of digestive tract; Z85.118 Personal history of other malignant neoplasm of bronchus and lung; Z90.2 Acquired absence of lung [part of]; Z98.61 Coronary angioplasty status; Z99.81 Dependence on supplemental oxygen
CPT/HCPCS: 96374; G0463; J1940; 96365